=== PATIENT | male | born 1990 | race Caucasian/White ===

== ENCOUNTER 2025-02-05 20:39 | Emergency (ER) | payer BC ==
[2025-02-08 15:37] LABS: Histoplasma Antigen - Urine Negative (<0.2 ng/mL)
[2025-02-10 21:13] LABS: Histoplasma Mycelial AB (CF) Negative (Neg:<1:2); Histoplasma Yeast AB (CF) Negative (Neg:<1:2)
== END 2025-02-05 21:31 | disposition home or self-care (01) ==
LOC: CSHERS 20:39
DX: J18.9 Pneumonia, unspecified organism (principal)
CPT/HCPCS: 86698; 87385; 93005; 99283

== ENCOUNTER 2025-03-26 14:27 | Outpatient (CLI) | payer BC | END 2025-03-26 14:28 | disposition home or self-care (01) | LOC: CSHMRI 14:27 | PROVIDERS: ATTEND Nurse Practitioner Family | DX: S39.92XA Unspecified injury of lower back, initial encounter (principal); M48.061 Spinal stenosis, lumbar region without neurogenic claudication; M48.07 Spinal stenosis, lumbosacral region | CPT/HCPCS: 72148 ==